=== PATIENT | female | born 2000 | race Caucasian/White ===

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

== ENCOUNTER 2023-08-21 14:59 | Emergency (ER) | payer BC, OTHER ==
[2023-08-21 15:18] VITALS: BP 140/82; O2SAT 100
[2023-08-21 16:10] LABS: BASOPHILS % (AUTO) 0.2 %; EOSINOPHILS # (AUTO) 0.2 10^3/uL (0.0-0.7); EOSINOPHILS % (AUTO) 1.5 %; HCT - HEMATOCRIT 39.8 % (37.0-47.0); HGB - HEMOGLOBIN 13.5 g/dL (12.0-16.0); LYMPHOCYTES # (AUTO) 2.5 10^3/uL (1.5-3.5); LYMPHOCYTES % (AUTO) 23.2 %; MEAN CORPUSCULAR HEMOGLOBIN 31.3 pg (27.0-31.0); MEAN CORPUSCULAR HGB CONC 33.9 g/dL (32.0-36.0); MEAN CORPUSCULAR VOLUME 92.1 fL (81.0-99.0); MEAN PLATELET VOLUME 10.3 fL (7.9-10.8); MONOCYTES # (AUTO) 0.7 10^3/uL (0.0-1.0); MONOCYTES % (AUTO) 6.3 %; NEUTROPHILS # (AUTO) 7.3 10^3/uL (1.5-6.6); NEUTROPHILS % (AUTO) 68.5 %; PLT - PLATELET COUNT 299 10^3/uL (130-450); RED BLOOD COUNT 4.32 10^6/uL (4.20-5.40); RED CELL DISTRIBUTION WIDTH 11.6 % (12.0-15.0); WHITE BLOOD COUNT 10.6 x10^3/uL (4.8-10.8)
[2023-08-21 16:27] LABS: ALBUMIN 4.2 g/dL (3.2-5.5); ALBUMIN/GLOBULIN RATIO 1.6 (1.0-2.2); BILIRUBIN,TOTAL 0.7 mg/dL (0.2-1.0); CALCIUM 9.3 mg/dL (8.5-10.3); CREATININE 0.6 mg/dL (0.6-1.3); POTASSIUM 3.5 mmol/L (3.5-4.5); TOTAL PROTEIN 6.8 g/dL (6.4-8.9)
== END 2023-08-21 19:20 | disposition left against medical advice (07) ==
LOC: ED 14:59
DX: Z53.21 Procedure and treatment not carried out due to patient leaving prior to being seen by health care provider (principal)
CPT/HCPCS: 36415; 80053; 83690; 85025

== ENCOUNTER 2023-09-23 15:25 | Emergency (ER) | payer BC ==
[2023-09-23 15:52] VITALS: BP 148/89; O2SAT 100
[2023-09-23 16:32] LABS: BASOPHILS % (AUTO) 0.3 %; EOSINOPHILS # (AUTO) 0.1 10^3/uL (0.0-0.7); EOSINOPHILS % (AUTO) 1.8 %; HGB - HEMOGLOBIN 13.5 g/dL (12.0-16.0); LYMPHOCYTES # (AUTO) 1.5 10^3/uL (1.5-3.5); LYMPHOCYTES % (AUTO) 22.7 %; MEAN CORPUSCULAR HEMOGLOBIN 31.2 pg (27.0-31.0); MEAN CORPUSCULAR HGB CONC 33.8 g/dL (32.0-36.0); MEAN CORPUSCULAR VOLUME 92.4 fL (81.0-99.0); MEAN PLATELET VOLUME 10.1 fL (7.9-10.8); MONOCYTES # (AUTO) 0.7 10^3/uL (0.0-1.0); MONOCYTES % (AUTO) 10.7 %; NEUTROPHILS # (AUTO) 4.3 10^3/uL (1.5-6.6); NEUTROPHILS % (AUTO) 64.3 %; PLT - PLATELET COUNT 286 10^3/uL (130-450); RED BLOOD COUNT 4.33 10^6/uL (4.20-5.40); RED CELL DISTRIBUTION WIDTH 11.4 % (12.0-15.0); WHITE BLOOD COUNT 6.7 x10^3/uL (4.8-10.8)
[2023-09-23 16:39] LABS: MAGNESIUM 1.8 mg/dL (1.7-2.3)
[2023-09-23 16:45] LABS: ALBUMIN 4.4 g/dL (3.2-5.5); ALBUMIN/GLOBULIN RATIO 1.5 (1.0-2.2); BILIRUBIN,TOTAL 0.5 mg/dL (0.2-1.0); CALCIUM 9.4 mg/dL (8.5-10.3); CREATININE 0.8 mg/dL (0.6-1.3); POTASSIUM 4.3 mmol/L (3.5-4.5); TOTAL PROTEIN 7.3 g/dL (6.4-8.9)
--- NOTE | 2023-09-23 18:41 | ED Physician Documentation ---
History of Present Illness - Stated complaint Stated Complaint: PIZANO,N/V - Chief complaint Chief Complaint: Heent - Additonal information Additional information: 23 yr-old female presents emergency department for new confusion. Patient says that she has a history of migraines and headaches but has never experienced a headache like this she describes as head pressure to the front of her head she does endorse a history of seasonal allergies that was worse in July but feels like it has improved since then. No nausea vomiting no neck pain no recent fevers or chills or illnesses. She reports that at work she has been having a hard time remembering what she is doing she will walk into the kitchen and cannot remember how she got there she will make a coffee but has no recollection of making the coffee or what the coffee was for. No neurological deficits no other concerning symptoms per patient. PD PAST MEDICAL HISTORY - Past Medical History Past Medical History: Yes GI: Other - Past Surgical History Past Surgical History: No - Present Medications Home Medications: Ambulatory Orders Medication Instructions Recorded Confirmed Etonogestrel [Nexplanon] 68 mg SUBQ DAILY 09/24/23 09/24/23 - Allergies Allergies/Adverse Reactions: Allergies Allergy/AdvReac Type Severity Reaction Status Date / Time No Known Drug Allergies Allergy Verified 09/24/23 08:39 - Social History Does the pt smoke?: No Smoking Status: Never smoker Does the pt drink ETOH?: No Does the pt have substance abuse?: No PD ED PE NORMAL - Vitals Vital signs reviewed: Yes - General General: Alert and oriented X 3, No acute distress, Well developed/nourished - HEENT HEENT: Atraumatic, PERRL - Neck Neck: Supple, no meningeal sign, No bony TTP - Cardiac Cardiac: RRR, No murmur - Respiratory Respiratory: No respiratory distress - Abdomen Abdomen: Normal bowel sounds, Soft - Back Back: No CVA TTP, No spinal TTP - Derm Derm: Normal color, Warm and dry, No rash - Neuro Neuro: Alert and oriented X 3, plant mechanic 2-12 intact, No motor deficit, No sensory deficit, Normal speech Eye Opening: Spontaneous Motor: Obeys Commands Verbal: Oriented GCS Score: 15 - Psych Psych: Normal mood, Normal affect PD ED PE EXPANDED - Neuro Neuro: Alert and Oriented X 3, Normal motor, Normal Sensation, Normal Speech, Normal reflexes, CNII-XII intact, PERRL, Normal gait, Normal finger nose, Normal speech. No: Confused, Disoriented, Weakness, Abnormal sensation, Dyscongugate gaze, Nystagmus Results - Vitals Vitals: Vital Signs - 24 hr 09/23/23 15:36 Temperature 36.3 C L Heart Rate 66 Respiratory 15 Rate Blood Pressure 148/89 H O2 Saturation 100 Oxygen O2 Source Room air - Labs Labs: Laboratory Tests 09/23/23 09/23/23 09/23/23 16:28 16:28 20:03 WBC 6.7 RBC 4.33 Hgb 13.5 Hct 40.0 MCV 92.4 MCH 31.2 H MCHC 33.8 RDW 11.4 L Plt Count 286 MPV 10.1 Neut # (Auto) 4.3 Lymph # (Auto) 1.5 Towns # (Auto) 0.7 Eos # (Auto) 0.1 Baso # (Auto) 0.0 Absolute Nucleated RBC 0.00 Nucleated RBC % 0.0 Sodium 137 Potassium 4.3 Chloride 103 Carbon Dioxide 29 Anion Gap 5.0 L BUN 17 Creatinine 0.8 Estimated GFR (MDRD) 91 Glucose 94 Calcium 9.4 Magnesium 1.8 Total Bilirubin 0.5 AST 14 ALT 20 Alkaline Phosphatase 65 Total Protein 7.3 Albumin 4.4 Globulin 2.9 Albumin/Globulin Ratio 1.5 Lipase 20 Urine Color YELLOW Urine Clarity CLEAR Urine pH 6.0 Ur Specific [place] 1.025 Urine Protein NEGATIVE Urine Glucose (UA) NEGATIVE Urine Ketones NEGATIVE Urine Occult Blood MODERATE H Urine Nitrite NEGATIVE Urine Bilirubin NEGATIVE Urine Urobilinogen 0.2 (NORMAL) Ur Leukocyte Esterase SMALL H Urine RBC 6-10 H Urine WBC 6-10 H Ur Squamous Epith Cells MANY Squamous H Urine Bacteria Many H Ur Microscopic Review INDICATED Urine Culture Comments NOT INDICATED Urine HCG, Qual 09/23/23 20:03 WBC RBC Hgb Hct MCV MCH MCHC RDW Plt Count MPV Neut # (Auto) Lymph # (Auto) Towns # (Auto) Eos # (Auto) Baso # (Auto) Absolute Nucleated RBC Nucleated RBC % Sodium Potassium Chloride Carbon Dioxide Anion Gap BUN Creatinine Estimated GFR (MDRD) Glucose Calcium Magnesium Total Bilirubin AST ALT Alkaline Phosphatase Total Protein Albumin Globulin Albumin/Globulin Ratio Lipase Urine Color Urine Clarity Urine pH Ur Specific [place] Urine Protein Urine Glucose (UA) Urine Ketones Urine Occult Blood Urine Nitrite Urine Bilirubin Urine Urobilinogen Ur Leukocyte Esterase Urine RBC Urine WBC Ur Squamous Epith Cells Urine Bacteria Ur Microscopic Review Urine Culture Comments Urine HCG, Qual NEGATIVE - Rads (name of study) Head CT without Relevant Findings:: Final report received, EMP independent interpretation of test, Other (No definite acute intracranial abnormality. Slight increased density seen in the right tentorial leaflet may represent volume averaging artifact) PD Medical Decision Making - ED course ED course: 23-year-old female presents emergency department for confusion and mild dizziness. Patient says that she has been having a hard time remembering order of operation and what she is doing and accepts her things. She says that she has had a history of an MRI because she has a family history of MS and it was overall normal at that point in time although this was sometime ago. She has NIH score of 0 she is completely neurologically intact on my physical exam. Out of abundance of caution we went ahead and did a CT scan given that patient was complaining of this confusion with head pressure and CT scan showed no intracranial abnormalities but slightly increased density seen at the right tentorial leaflet which could be possibly due to artifact. Radiology is recommending CT or MRI for follow-up reevaluation. Given that patient has NIH score of 0 and she is completely neurologically intact and this pain has been going on now for about a week I think it safe for her to come back in the morning for repeat imaging of CT versus MRI. Patient feels comfortable with this plan she was given Toradol shot here in the ER for help with her headache as well as some Tylenol. All questions answered strict ER return precautions given patient safe for discharge. Departure - Departure Disposition: 01 Home, Self Care Clinical Impression: Pressure in head Instructions: ED Headache Migraine Comments: Thank you for trusting us with your care. We have completed a head CT see results below it is showing possible artifact which is movement or some possible increased density seen in the right tentorial leaflet. We recommend coming back in tomorrow for further evaluation and seeking possible MRI since he do not have a primary care provider. If any symptoms change overnight please come back into the emergency department. Take Tylenol ibuprofen for your headache and we are also giving you medication called meclizine to help with any vertigo symptoms that you are experiencing. Forms: PCP List Discharge Date/Time: 09/23/23 20:30
[2023-09-23] MEDS: KETOROLAC 30 MG/ML VIAL IM STA (19:11)
--- NOTE | 2023-09-23 19:16 | CT Report ---
PROCEDURE: Head WO INDICATIONS: confusion, head pressure TECHNIQUE: Noncontrast 4.5 mm thick angled axial sections acquired from the foramen magnum to the vertex. For r adiation dose reduction, the following was used: automated exposure control, adjustment of mA and/or kV according to patient size. COMPARISON: None. FINDINGS: Image quality: Diagnostic CSF spaces: Basal cisterns are patent. Lateral ventricles are symmetric. Volume: Generally maintained Brain: No intracranial hemorrhage. Zarco-white differentiation is grossly maintained. Slightly asymme tric density in the right tentorium. Craniofacial structures: No significant paranasal sinus opacification where visualized. IMPRESSION: No definite acute intracranial abnormality. There is slightly increased density seen in the right ten torial leaflet, which may represent volume averaging artifact. If there is a history of trauma or suf ficient clinical concern, a repeat head CT or MRI could be obtained. Reviewed by: Eliecer Causey MD on 09/23/2023 7:14 PM PDT Approved by: Eliecer Causey MD on 09/23/2023 7:14 PM PDT Station ID: [id number]
[2023-09-23 20:14] LABS: BILIRUBIN,URINE NEGATIVE (NEGATIVE); GLUCOSE, URINE (UA) NEGATIVE (NEGATIVE); KETONES,URINE (UA) NEGATIVE (NEGATIVE); LEUKOCYTE ESTERASE, URINE SMALL (NEGATIVE); NITRITE,URINE NEGATIVE (NEGATIVE); OCCULT BLOOD,URINE MODERATE (NEGATIVE); PROTEIN,URINE NEGATIVE (NEGATIVE); UROBILINOGEN,URINE 0.2 (NORMAL) E.U./dL (NORMAL)
[2023-09-23 20:19] LABS: CLARITY,URINE CLEAR (CLEAR)
[2023-09-23 20:20] LABS: HCG UR QUAL NEGATIVE
[2023-09-23] MEDS: ONDANSETRON ODT 4 MG TABLET TL STA (20:24)
[2023-09-23] MEDS: MECLIZINE 12.5 MG TABLET PO STA (20:24)
[2023-09-23 20:28] LABS: BACTERIA,URINE Many /HPF (None Seen); SQUAMOUS EPITHELIAL CELL,UR MANY Squamous (<= Few)
== END 2023-09-23 20:30 | disposition home or self-care (01) ==
LOC: ED 15:25
DX: R51.9 Headache, unspecified (principal)
CPT/HCPCS: 36415; 70450; 80053; 81001; 81025; 83690; 83735; 85025; 93005; 96372; 99284; A9270; Q0162; 81003; 87086

== ENCOUNTER 2023-09-24 08:27 | Emergency (ER) | payer BC ==
--- NOTE | 2023-09-24 10:08 | CT Report ---
PROCEDURE: Head WO INDICATIONS: possible tumor vs motion artifact on CT yest TECHNIQUE: Noncontrast 4.5 mm thick angled axial sections acquired from the foramen magnum to the vertex. For r adiation dose reduction, the following was used: automated exposure control, adjustment of mA and/or kV according to patient size. COMPARISON: 09/23/2023 and MRI of brain dated 11/12/2021. FINDINGS: Image quality: Excellent. CSF spaces: Basal cisterns are patent. No extra-axial fluid collections. Ventricles are normal in size and shape. Brain: No midline shift. No intracranial masses or hemorrhage. Zarco-white matter interface is norm al. Skull and face: Calvarium and visualized facial bones are intact, without suspicious lesions. Sinuses: Visualized sinuses and mastoids are clear. IMPRESSION: No acute intracranial pathology. Previous finding of increased density along right tentorial leaflet likely represent artifacts. Reviewed by: Luis Eduardo Powers MD on 09/24/2023 10:06 AM PDT Approved by: Luis Eduardo Powers MD on 09/24/2023 10:06 AM PDT Station ID: [id number]
--- NOTE | 2023-09-24 11:28 | ED Physician Documentation ---
History of Present Illness - Stated complaint Stated Complaint: SENT BACK BY DOC - Chief complaint Chief Complaint: General - History obtained from History obtained from: Patient, Family - Additonal information Additional information: The patient comes to the emergency department chief complaint of "I am back to get my MRI". The patient was seen yesterday for persistent headache and nausea and was sent to the CT scanner to get a look at her brain. Unfortunately, she seems to have moved a bit and there is a finding of possible tumor versus motion artifact. It was recommended by radiologist that the patient have either a repeat CT or an MRI to clarify the finding. The patient was told by her provider yesterday to come back here for an MRI today. Repeat CT was not done at the time. The patient denies any worsening of her symptoms. She has a history of chronic migraines. No other complaints at this time. PD PAST MEDICAL HISTORY - Past Medical History Past Medical History: Yes GI: Other - Past Surgical History Past Surgical History: No - Present Medications Home Medications: Ambulatory Orders Medication Instructions Recorded Confirmed Etonogestrel [Nexplanon] 68 mg SUBQ DAILY 09/24/23 09/24/23 - Allergies Allergies/Adverse Reactions: Allergies Allergy/AdvReac Type Severity Reaction Status Date / Time No Known Drug Allergies Allergy Verified 09/24/23 08:39 - Social History Does the pt smoke?: No Smoking Status: Never smoker Does the pt drink ETOH?: No Does the pt have substance abuse?: No - Immunizations Immunizations are current?: Yes PD ED PE NORMAL - Vitals Vital signs reviewed: Yes - General General: Alert and oriented X 3, No acute distress, Well developed/nourished - HEENT HEENT: Atraumatic, EOMI, Moist mucous membranes - Neck Neck: Supple, no meningeal sign - Cardiac Cardiac: RRR, No murmur - Respiratory Respiratory: No respiratory distress, Clear bilaterally - Abdomen Abdomen: Soft, Non tender, Non distended - Derm Derm: Normal color, Warm and dry, No rash - Extremities Extremities: No deformity, No edema - Neuro Neuro: Alert and oriented X 3, pond tender 2-12 intact, No motor deficit, No sensory deficit, Normal speech - Psych Psych: Normal mood, Normal affect Results - Vitals Vitals: Oxygen O2 Source Room air - Labs Labs: Laboratory Tests 09/24/23 11:25 TSH 1.71 - Rads (name of study) CT head Relevant Findings:: Final report received, See rad report (Normal, no finding of mass, suspect finding yesterday to be artifact) PD Medical Decision Making - ED course Complexity details: reviewed old records, reviewed results, re-evaluated patient, considered differential, d/w patient, d/w family ED course: I discussed with the patient and her mother that at this point in time, we will not be able to do her MRI for several hours and that the radiologist had also stated that repeat CT was a possibility. I feel that this is actually a much better option, at least as an initial study, given that the test is quicker and less involved and can guide us as to whether further evaluation is needed with MRI. The repeat CT was done and was negative. The radiologist stated that he suspected that the finding from yesterday CT was simply artifact. The patient is stable for discharge home. She is a patient of Dr. Rose and I have encouraged her to follow-up with him. We have discussed the usual indications for return. Departure - Departure Disposition: 01 Home, Self Care Clinical Impression: Persistent headaches, Confusion Condition: Stable Instructions: ED Cephalgia Unspecified Comments: Your CT scan looks great today. There is absolutely no evidence of a tumor and the radiologist feels in looking at your CT from yesterday and the CT from today, that the finding yesterday was artifact. You did not have a thyroid study done yesterday so we I have drawn and sent that today. If it comes back as showing low thyroid function, we will notify you and send in a prescription for thyroid replacement. It is important that you call make an appointment with your primary doctor to follow-up on the other ongoing symptoms you have been having. Please call today to make the next available appointment and let them know you were seen in the emergency department. Forms: PCP List Discharge Date/Time: 09/24/23 12:20
[2023-09-24 12:39] VITALS: BP 135/74; O2SAT 98
== END 2023-09-24 12:20 | disposition home or self-care (01) ==
LOC: ED 08:27
DX: Z76.89 Persons encountering health services in other specified circumstances (principal); R51.9 Headache, unspecified; R41.0 Disorientation, unspecified
CPT/HCPCS: 36415; 84443; 99283; 99284

== ENCOUNTER 2023-09-28 08:00 | Outpatient (CLI) | payer BC | END 2023-09-28 23:52 | disposition home or self-care (01) | LOC: LAB.N 08:00 | PROVIDERS: ATTEND Nurse Practitioner | DX: N75.1 Abscess of Bartholin's gland (principal) | CPT/HCPCS: 87070 ==